=== PATIENT | male | born 1980 | race Native Hawaiian/Other Pacific Islander ===

== ENCOUNTER 2021-05-23 14:57 | Outpatient (CLI) | payer BC | END 2021-05-23 19:16 | disposition home or self-care (01) | LOC: CT 14:57 | PROVIDERS: ATTEND Nurse Practitioner Family | DX: R51.9 Headache, unspecified (principal) ==

== ENCOUNTER 2021-05-24 15:08 | Outpatient (CLI) | payer BC | END 2021-05-24 22:53 | disposition home or self-care (01) | LOC: RAD 15:08 | PROVIDERS: ATTEND Nurse Practitioner Family | DX: M54.12 Radiculopathy, cervical region (principal) ==

== ENCOUNTER 2021-09-02 08:40 | Emergency (ER) | payer BC ==
[2021-09-02] VITALS (8 sets, daily range): BP systolic 112–151; BP diastolic 73–92; TEMP 98
[~2021-09-02] VITALS: Ht 177.8 cm; Wt 79.8 kg
[2021-09-02 09:23] LABS: PLATELET COUNT 211 K/uL (142-355)
[2021-09-02 09:33] LABS: POTASSIUM 3.5 mmol/L (3.6-5.2)
[2021-09-02 09:41] LABS: PARTIAL THROMBOPLASTIN TIME 27.3 SECONDS (24.5-33.6)
== END 2021-09-02 14:23 | disposition still patient (30) ==
LOC: ED 08:40 → MED/SURG 10:15 → ED 10:15
PROVIDERS: Hospitalist
DX: R07.89 Other chest pain (principal); Z11.52 Encounter for screening for COVID-19
CPT/HCPCS: 36415; 80053; 82550; 83880; 84484; 85027; 85610; 85730; 87635; 93005; 96374; 99284; J3490; U0003

== ENCOUNTER 2022-04-12 10:23 | Outpatient (CLI) | payer BC | END 2022-04-12 20:59 | disposition home or self-care (01) | LOC: RAD 10:23 | PROVIDERS: ATTEND Nurse Practitioner Family | DX: M26.609 Unspecified temporomandibular joint disorder, unspecified side (principal) ==

== ENCOUNTER 2023-06-04 08:19 | Outpatient (CLI) | payer BC | END 2023-06-04 19:47 | disposition home or self-care (01) | LOC: MRI 08:19 | PROVIDERS: ATTEND Nurse Practitioner Family | DX: M54.12 Radiculopathy, cervical region (principal) ==